=== PATIENT | male | born 1965 | race Caucasian/White ===

== ENCOUNTER 2016-12-07 14:49 | Emergency (ER) | payer SELFPAY ==
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
--- NOTE | 2016-12-07 16:31 | ED ORDER SUMMARY ---
..... Patient: CAMILLA HOLM OrderSheet [facility] VisitID: [id number] [place] [address] 51y, M Registration Date/Time: 12/07/2016 ORDER SHEET Weight: 111.1 kg (stated) Allergies: None, Narcotics GENERAL ORDERS: Hand 3 or 4V Right Urgent (14:56 12/07/2016 HBivens A.R.N.P.) ([facility] (15:13 KKnebel R.N.) MEDICATION ORDERS: Lidocaine Injection 1% plain (place at bedside) (14:56 12/07/2016 HBivens A.R.N.P.) (15:13 KKnebel R.N.) Bupivacaine Injection 0.5 % (soln) (NOW) (14:56 12/07/2016 HBivens A.R.N.P.) (15:14 KKnebel R.N.) IV FLUIDS: ORDER SHEET NOTES: [Electronically signed by Allison Quinteros R.N. (16:57 12/07/2016)] [Electronically signed by Colleen Avila.R.N.P. (17:32 12/07/2016)] [Electronically locked/signed by Allison Quinteros R.N. (16:57 12/07/2016)]
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
--- NOTE | 2016-12-07 16:31 | ED ORDER SUMMARY ---
..... Patient: CAMILLA HOLM OrderSheet [facility] VisitID: [id number] [place] [address] 51y, M Registration Date/Time: 12/07/2016 ORDER SHEET Weight: 111.1 kg (stated) Allergies: None, Narcotics GENERAL ORDERS: Hand 3 or 4V Right Urgent (14:56 12/07/2016 HBivens A.R.N.P.) ([facility] (15:13 KKnebel R.N.) MEDICATION ORDERS: Lidocaine Injection 1% plain (place at bedside) (14:56 12/07/2016 HBivens A.R.N.P.) (15:13 KKnebel R.N.) Bupivacaine Injection 0.5 % (soln) (NOW) (14:56 12/07/2016 HBivens A.R.N.P.) (15:14 KKnebel R.N.) IV FLUIDS: ORDER SHEET NOTES: [Electronically signed by Allison Quinteros R.N. (16:57 12/07/2016)] [Electronically signed by Colleen Avila.R.N.P. (17:32 12/07/2016)] [Electronically locked/signed by Allison Quinteros R.N. (16:57 12/07/2016)]
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
--- NOTE | 2016-12-07 16:34 | DIAGNOSTIC IMAGING REPORT ---
PROCEDURE: XR HAND 3 OR 4 VIEWS - RIGHT INDICATION: TRAUMA/INJURY TECHNIQUE: Four views. COMPARISON: None. FINDINGS: Severe osteoarthritis with bony hypertrophy and near complete loss of the joint space involving the PIP joint of the second digit. No fracture or dislocation IMPRESSION: 1. Severe osteoarthritis right second PIP joint. 2. Results were discussed with Colleen Avila at 04:30 p.m.
--- NOTE | 2016-12-07 17:33 | ED MAR SUMMARY ---
..... Medication Administration Record [facility] [address] [place] [address] Patient: CAMILLA HOLM Visit ID: [id number] 51y, M Weight: 111.1 kg Height/Length: 73 in BMI: 32.3 ALLERGIES: Narcotics, None Given 15:03 12/07/2016 Allison Quinteros RKenneth Medication Administered: LIDOCAINE [INJECTION], Dose: 2 % Injection. Medication Ordered: Lidocaine Injection 1% plain (place at bedside). Given 15:04 12/07/2016 Allison Quinteros RZohaibNZohaib Medication Administered: BUPIVACAINE [INJECTION], Dose: 0.5 % Injection. Medication Ordered: Bupivacaine Injection 0.5 % (soln) (NOW).
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
--- NOTE | 2016-12-07 17:33 | ED MED RECONCILIATION SUMMARY ---
Patient: CAMILLA HOLM Medication Reconciliation Report [facility] VisitID: [id number] [address] [place] [address] 51y, M Registration Date/Time: 12/07/2016 Weight: 111.1 kg Height/Length: 73 in. BMI: 32.3 ALLERGIES: Narcotics, None The patient's Home Medications are listed below: NONE. The source(s) of the original Home Medication information: patient The following Medications were given to the patient in the Emergency Department: Lidocaine [Injection] Injection 2 %, administered: 12/07/2016 3:03:00 PM Bupivacaine [Injection] Injection 0.5 %, administered: 12/07/2016 3:04:00 PM The following Medications were prescribed to the patient: None.
--- NOTE | 2016-12-07 17:33 | ED MED RECONCILIATION SUMMARY ---
Patient: CAMILLA HOLM Medication Reconciliation Report [facility] VisitID: [id number] [address] [place] [address] 51y, M Registration Date/Time: 12/07/2016 Weight: 111.1 kg Height/Length: 73 in. BMI: 32.3 ALLERGIES: Narcotics, None The patient's Home Medications are listed below: NONE. The source(s) of the original Home Medication information: patient The following Medications were given to the patient in the Emergency Department: Lidocaine [Injection] Injection 2 %, administered: 12/07/2016 3:03:00 PM Bupivacaine [Injection] Injection 0.5 %, administered: 12/07/2016 3:04:00 PM The following Medications were prescribed to the patient: None.
--- NOTE | 2016-12-07 17:33 | ED MAR SUMMARY ---
..... Medication Administration Record [facility] [address] [place] [address] Patient: CAMILLA HOLM Visit ID: [id number] 51y, M Weight: 111.1 kg Height/Length: 73 in BMI: 32.3 ALLERGIES: Narcotics, None Given 15:03 12/07/2016 Allison Quinteros RKenneth Medication Administered: LIDOCAINE [INJECTION], Dose: 2 % Injection. Medication Ordered: Lidocaine Injection 1% plain (place at bedside). Given 15:04 12/07/2016 Allison Quinteros RZohaibNZohaib Medication Administered: BUPIVACAINE [INJECTION], Dose: 0.5 % Injection. Medication Ordered: Bupivacaine Injection 0.5 % (soln) (NOW).
== END 2016-12-07 16:40 | disposition home or self-care (01) ==
LOC: ED SRH 14:49
DX: M79.1 Myalgia (principal); S69.91XA Unspecified injury of right wrist, hand and finger(s), initial encounter; V47.1XXA Car passenger injured in collision with fixed or stationary object in nontraffic accident, initial encounter; Y93.9 Activity, unspecified; Y92.410 Unspecified street and highway as the place of occurrence of the external cause; Y99.9 Unspecified external cause status; F17.210 Nicotine dependence, cigarettes, uncomplicated

== ENCOUNTER 2017-01-21 17:43 | Emergency (ER) | payer OTHER ==
--- NOTE | 2017-01-21 19:40 | DIAGNOSTIC IMAGING REPORT ---
PROCEDURE: XR HIP 2VW W W/O AP PELVIS-LT INDICATION: PAIN IN JOINT TECHNIQUE: AP view of the pelvis and hips with lateral view of the left hip. COMPARISON: None. FINDINGS: LEFT HIP: Normal mineralization. No acute fracture. There is a corticated minimally displaced avulsion of the tip of the lesser trochanter. Mild superior acetabular sclerosis and lateral subcortical cystic changes. Minimal femoral head spurring. Normal bony alignment. No unusual adjacent calcifications. PELVIS: Normal mineralization. Pelvic rings are intact. No fractures. Normal alignment. Minor degenerative change at the right hip joint. The visible bowel gas pattern and pelvic soft tissues appear normal. IMPRESSION: 1. No acute fractures. 2. Minimally displaced, chronic-appearing left lesser trochanter tip avulsion suggestive of prior musculotendinous injury. 3. Mild degenerative change at both femoral acetabular joints.
--- NOTE | 2017-01-21 21:36 | ED ORDER SUMMARY ---
..... Patient: CAMILLA HOLM OrderSheet [facility] VisitID: [id number] [place] [address] 51y, M Registration Date/Time: 01/21/2017 ORDER SHEET Weight: 108.8 kg (stated) Allergies: Narcotics, Morphine and Related GENERAL ORDERS: Hip 2V Left w AP Pelvis Urgent (19:04 01/21/2017 Luis Helton) (Ack 19:05 AMcQuoid ER Tech1) (19:30 MCampbell) MEDICATION ORDERS: Toradol IM 60 mg (NOW) (19:03 01/21/2017 Luis Helton) (19:40 Nathalie R.N.) Decadron IM 4 mg (NOW) (20:25 01/21/2017 Luis Helton) (Ack 20:31 Nathalie R.N.) (21:19 Nathalie R.N.) Lidocaine Injection 2 % (soln) (NOW) (20:25 01/21/2017 Luis Helton) (Ack 20:31 Nathalie R.N.) (21:21 Nathalie R.N.) Sensorcaine Injection 0.5 % (soln) (NOW) (20:26 01/21/2017 Luis Helton) (Ack 20:31 Nathalie R.N.) (21:22 Nathalie R.N.) IV FLUIDS: ORDER SHEET NOTES: [Electronically signed by Neal Cisse R.N. (21:48 01/21/2017)] [Electronically signed by Alejo Weber Dr. (20:53 01/22/2017)] [Electronically locked/signed by Neal Cisse R.N. (21:48 01/21/2017)]
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
--- NOTE | 2017-01-21 21:36 | ED ORDER SUMMARY ---
..... Patient: CAMILLA HOLM OrderSheet [facility] VisitID: [id number] [place] [address] 51y, M Registration Date/Time: 01/21/2017 ORDER SHEET Weight: 108.8 kg (stated) Allergies: Narcotics, Morphine and Related GENERAL ORDERS: Hip 2V Left w AP Pelvis Urgent (19:04 01/21/2017 Luis Helton) (Ack 19:05 AMcQuoid ER Tech1) (19:30 MCampbell) MEDICATION ORDERS: Toradol IM 60 mg (NOW) (19:03 01/21/2017 Luis Helton) (19:40 Nathalie R.N.) Decadron IM 4 mg (NOW) (20:25 01/21/2017 Luis Helton) (Ack 20:31 Nathalie R.N.) (21:19 Nathalie R.N.) Lidocaine Injection 2 % (soln) (NOW) (20:25 01/21/2017 Luis Helton) (Ack 20:31 Nathalie R.N.) (21:21 Nathalie R.N.) Sensorcaine Injection 0.5 % (soln) (NOW) (20:26 01/21/2017 Luis Helton) (Ack 20:31 Nathalie R.N.) (21:22 Nathalie R.N.) IV FLUIDS: ORDER SHEET NOTES: [Electronically signed by Neal Cisse R.N. (21:48 01/21/2017)] [Electronically signed by Alejo Weber Dr. (20:53 01/22/2017)] [Electronically locked/signed by Neal Cisse R.N. (21:48 01/21/2017)]
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
--- NOTE | 2017-01-22 20:53 | ED MED RECONCILIATION SUMMARY ---
Patient: CAMILLA HOLM Medication Reconciliation Report [facility] VisitID: [id number] [address] [place] [address] 51y, M Registration Date/Time: 01/21/2017 Weight: 108.8 kg Height/Length: 74 in. BMI: 30.8 ALLERGIES: Morphine and Related, Narcotics The patient's Home Medications are listed below: CONTINUE TAKING THE FOLLOWING MEDICATIONS: Suboxone Sublingual The source(s) of the original Home Medication information: patient The following Medications were given to the patient in the Emergency Department: Toradol [IM] IM 60 mg, administered: 01/21/2017 7:40:00 PM Decadron [IM] IM 4 mg, administered: 01/21/2017 9:04:00 PM Lidocaine [Injection] Injection 2 %, administered: 01/21/2017 9:05:00 PM Sensorcaine [Injection] Injection 0.5 %, administered: 01/21/2017 9:06:00 PM The following Medications were prescribed to the patient: Diclofenac 50 mg tablets: take 1 tablet orally every 8 hours as needed for pain or stiffness. Dispense thirty (30). No refill. -- Alejo Weber Dr.
--- NOTE | 2017-01-22 20:53 | ED MAR SUMMARY ---
..... Medication Administration Record [facility] [address] [place] [place] [address] Patient: CAMILLA HOLM Visit ID: [id number] 51y, M Weight: 108.8 kg Height/Length: 74 in BMI: 30.8 ALLERGIES: Morphine and Related, Narcotics Given 19:40 01/21/2017 Neal Cisse R.N. Medication Administered: TORADOL [IM] (KETOROLAC TROMETHAMINE), Dose: 60 mg IM. Medication Ordered: Toradol IM 60 mg (NOW). Given 21:04 01/21/2017 Neal Cisse R.N. Medication Administered: DECADRON [IM] (DEXAMETHASONE SODIUM PHOSPHATE), Dose: 4 mg IM. Medication Ordered: Decadron IM 4 mg (NOW). Given 21:05 01/21/2017 Neal Cisse R.N. Medication Administered: LIDOCAINE [INJECTION], Dose: 2 % Injectable Injection. Medication Ordered: Lidocaine Injection 2 % (soln) (NOW). Given 21:06 01/21/2017 Neal Cisse R.N. Medication Administered: SENSORCAINE [INJECTION] (BUPIVACAINE HCL), Dose: 0.5 % Injectable Injection. Medication Ordered: Sensorcaine Injection 0.5 % (soln) (NOW).
--- NOTE | 2017-01-22 20:53 | ED DISCHARGE INSTRUCTIONS ---
Patient: CAMILLA HOLM General Instructions [facility] VisitID: [id number] [place] [address] 51y, M Registration Date/Time: 01/21/2017 Bursitis of the left hip. INSTRUCTIONS Apply ice for 20 minutes four times a day until better. Don't apply ice directly to skin. Your Current Medications: CONTINUE TAKING THE FOLLOWING MEDICATIONS: Suboxone Sublingual. Prescription Medications: Diclofenac 50 mg tablets: take 1 tablet orally every 8 hours as needed for pain or stiffness. Dispense thirty (30). No refill. Follow-up: Follow up with your doctor tomorrow as scheduled. Screening today revealed the patient's blood pressure to be in the hypertensive range. The patient should follow up with a primary care provider for blood pressure management. ADDITIONAL INFORMATION Bursitis The larger joints of the body are surrounded bybursa. These are small, flat fluid-filled sacs which help the gliding motion of the muscles and tendons over the joints. Bursitis is an inflammation of the bursa due to injury, overuse of the joint, or infection of the bursa itself. Symptoms include pain and tenderness over a joint that is made worse with movement. Bursitis is treated with an anti-inflammatory medicine and by resting the joint. More severe cases require injection of medicine directly into the bursa. Home Care: Apply an ice pack (ice cubes in a plastic bag, wrapped in a towel) over the injured area for 20 minutes every 1-2 hours the first day. Continue this 3-4 times a day until the pain and swelling improves. Rest the painful joint and protect it from movement. This will allow the inflammation to heal faster. You may take ibuprofen (Motrin, Advil) or naproxen (Aleve, Naprosyn) to treat pain and inflammation, unless another medicine was prescribed. If you can't take these medicines, acetaminophen (Tylenol) may help with the pain, but does not treat inflammation. [NOTE: If you have chronic liver or kidney disease or ever had a stomach ulcer or GI bleeding, talk with your doctor before using these medicines.] As your symptoms improve, begin gradual motion at the joint. Do not overuse the joint, which may cause the symptoms to flare up again. Follow Up With Your Doctor If Not Improving After Three Days Of Treatment. Get Prompt Medical Attention If Any Of The Following Occur: Redness over the painful area Increasing pain or swelling at the joint Fever of 100.4F (38C) or higher, or as directed by your healthcare provider You have been given the following additional information: Bursitis (Electronically signed by Alejo Weber Dr. 01/22/2017 20:53)
--- NOTE | 2017-01-22 20:53 | ED MED RECONCILIATION SUMMARY ---
Patient: CAMILLA HOLM Medication Reconciliation Report [facility] VisitID: [id number] [address] [place] [address] 51y, M Registration Date/Time: 01/21/2017 Weight: 108.8 kg Height/Length: 74 in. BMI: 30.8 ALLERGIES: Morphine and Related, Narcotics The patient's Home Medications are listed below: CONTINUE TAKING THE FOLLOWING MEDICATIONS: Suboxone Sublingual The source(s) of the original Home Medication information: patient The following Medications were given to the patient in the Emergency Department: Toradol [IM] IM 60 mg, administered: 01/21/2017 7:40:00 PM Decadron [IM] IM 4 mg, administered: 01/21/2017 9:04:00 PM Lidocaine [Injection] Injection 2 %, administered: 01/21/2017 9:05:00 PM Sensorcaine [Injection] Injection 0.5 %, administered: 01/21/2017 9:06:00 PM The following Medications were prescribed to the patient: Diclofenac 50 mg tablets: take 1 tablet orally every 8 hours as needed for pain or stiffness. Dispense thirty (30). No refill. -- Alejo Weber Dr.
--- NOTE | 2017-01-22 20:53 | ED MAR SUMMARY ---
..... Medication Administration Record [facility] [address] [place] [address] Patient: CAMILLA HOLM Visit ID: [id number] 51y, M Weight: 108.8 kg Height/Length: 74 in BMI: 30.8 ALLERGIES: Morphine and Related, Narcotics Given 19:40 01/21/2017 Neal Cisse R.N. Medication Administered: TORADOL [IM] (KETOROLAC TROMETHAMINE), Dose: 60 mg IM. Medication Ordered: Toradol IM 60 mg (NOW). Given 21:04 01/21/2017 Neal Cisse R.N. Medication Administered: DECADRON [IM] (DEXAMETHASONE SODIUM PHOSPHATE), Dose: 4 mg IM. Medication Ordered: Decadron IM 4 mg (NOW). Given 21:05 01/21/2017 Neal Cisse R.N. Medication Administered: LIDOCAINE [INJECTION], Dose: 2 % Injectable Injection. Medication Ordered: Lidocaine Injection 2 % (soln) (NOW). Given 21:06 01/21/2017 Neal Cisse R.N. Medication Administered: SENSORCAINE [INJECTION] (BUPIVACAINE HCL), Dose: 0.5 % Injectable Injection. Medication Ordered: Sensorcaine Injection 0.5 % (soln) (NOW).
== END 2017-01-21 21:48 | disposition home or self-care (01) ==
LOC: ED SRH 17:43
DX: M70.62 Trochanteric bursitis, left hip (principal); F17.200 Nicotine dependence, unspecified, uncomplicated